=== PATIENT | male | born 1945 | race Caucasian/White ===

== ENCOUNTER 2018-02-14 17:42 | Emergency (ER) | payer MEDICARE, OTHER ==
[2018-02-14 17:55] VITALS: BMI 24.7
[2018-02-14 17:58] VITALS: O2SAT 99
--- NOTE | 2018-02-14 18:59 | C.PDOC ---
History Of Present Illness 72 year old male presents to the ED for evaluation of intermittent discomfort in his inguinal areas (right>left) after heavy lifting. Patient has prior diagnosis of inguinal hernia. Patient was referred for outpatient surgical consult, but has not followed up because he is afraid of surgery. Patient presents to the ED requesting a second opinion. He denies fever, chills, nausea , vomiting. Time Seen by Provider: 02/14/18 18:18 Chief Complaint (Nursing): Abdominal Pain History Per: Patient History/Exam Limitations: no limitations Onset/Duration Of Symptoms: Hrs Current Symptoms Are (Timing): Still Present Quality Of Discomfort: "Pain" Associated Symptoms: denies: Fever, Chills, Nausea, Vomiting Additional History Per: Patient Past Medical History Reviewed: Historical Data, Nursing Documentation, Vital Signs Vital Signs: Last Vital Signs Temp 97.7 F 02/14/18 19:13 Pulse 61 02/14/18 19:13 Resp 18 02/14/18 19:13 BP 110/71 02/14/18 19:13 Pulse Ox 99 02/14/18 21:02 - Medical History PMH: HTN, Hypercholesterolemia Surgical History: No Surg Hx Family History: States: Unknown Family Hx - Social History Hx Alcohol Use: No Hx Substance Use: No - Immunization History Hx Tetanus Toxoid Vaccination: No Hx Influenza Vaccination: No Hx Pneumococcal Vaccination: No Review Of Systems Constitutional: Negative for: Fever, Chills Gastrointestinal: Positive for: Other (inguinal hernia, right>left). Negative for: Nausea, Vomiting Physical Exam - Physical Exam Appears: Non-toxic, No Acute Distress Skin: Normal Color, Warm, Dry Head: Atraumatic, Normacephalic Eye(s): bilateral: Normal Inspection Oral Mucosa: Moist Neck: Supple Chest: Symmetrical, No Deformity, No Tenderness Cardiovascular: Rhythm Regular, No Murmur Respiratory: Normal Breath Sounds, No Rales, No Rhonchi, No Wheezing Gastrointestinal/Abdominal: Soft, No Tenderness, No Guarding, No Rebound Male Genital: No Scrotal Swelling, Other (small, bilateral inguinal hernias right>left. no protruding hernias. scrotum and penis unremarkable ) Extremity: Normal ROM, Capillary Refill (less than 2 seconds ) Neurological/Psych: Oriented x3, Normal Speech, Normal Cognition ED Course And Treatment O2 Sat by Pulse Oximetry: 99 (on RA) Pulse Ox Interpretation: Normal Progress Note: Motrin PO given. Medical Decision Making Medical Decision Making: b/l R>L small inguinal hernias already prior dx pt lost to f/u with Gen Surg ok to f/u as opt no protruding hernia now. reduction/ice/NSAIDS educated. Disposition Doctor Will See Patient In The: Office Counseled Patient/Family Regarding: Studies Performed, Diagnosis - Disposition Referrals: [facility] [Outside] [facility] [Outside] [facility] [Outside] Zay Bess MD [Medical Doctor] - Cornelius Johnson MD [Staff Provider] - Hunter Keita MD [Staff Provider] - Disposition: HOME/ ROUTINE Disposition Time: 18:57 Condition: GOOD Additional Instructions: Llama para hacer carson con el Cirjuano General en la proxima 1-2 semanas. No levanta nada pesada Agueda Ibuprofeno 400-600 mg cada 6 horas cindy necessario. Si duele pone bolsa de hielo encima Porque esta tomando Plavix, tiene que descontinuar el Plavix ANTES del cirjuia electivos Se puede coordinar con Dr. Keita. Instructions: Inguinal and Femoral (Groin) Hernias Forms: [employer] (Sami) Print Language: TURKISH - Clinical Impression Clinical Impression: Inguinal hernia bilateral, non-recurrent - Scribe Statement The provider has reviewed the documentation as recorded by the Scribe (Samina Wheeler) Provider Attestation: All medical record entries made by the Scribe were at my direction and personally dictated by me. I have reviewed the chart and agree that the record accurately reflects my personal performance of the history, physical exam, medical decision making, and the department course for this patient. I have also personally directed, reviewed, and agree with the discharge instructions and disposition.
[2018-02-14 19:14] VITALS: BP 110/71; PULSE 61; RESP 18; TEMP 97.7
== END 2018-02-14 19:18 | disposition home or self-care (01) ==
LOC: C.ER 17:42
DX: K40.20 Bilateral inguinal hernia, without obstruction or gangrene, not specified as recurrent (principal)

== ENCOUNTER 2018-04-18 19:17 | Emergency (ER) | payer MEDICARE, OTHER ==
[2018-04-18 19:17] VITALS: BMI 24.7
[2018-04-18 19:30] VITALS: O2SAT 98
--- NOTE | 2018-04-18 20:10 | C.PDOC ---
History Of Present Illness 72yo male, comes to ER reporting a persistent direct right inguinal hernia. Patient was seen for same by this physician on 02/14 and was extensively instructed on reduction technique, and informed to follow up with a surgeon. Patient states he has done neither, and is here today due to persistent mild discomfort. Otherwise, no fever, chills, abdominal pain, vomiting or diarrhea. Time Seen by Provider: 04/18/18 19:42 Chief Complaint (Nursing): Abdominal Pain History Per: Patient History/Exam Limitations: no limitations Onset/Duration Of Symptoms: Persistent Past Medical History Reviewed: Historical Data, Nursing Documentation, Vital Signs Vital Signs: Last Vital Signs Temp 97.7 F 04/18/18 20:00 Pulse 63 04/18/18 20:00 Resp 16 04/18/18 20:00 BP 124/73 04/18/18 20:00 Pulse Ox 98 04/18/18 21:00 - Medical History PMH: HTN, Hypercholesterolemia Surgical History: No Surg Hx Family History: States: Unknown Family Hx - Social History Hx Alcohol Use: No Hx Substance Use: No - Immunization History Hx Tetanus Toxoid Vaccination: No Hx Influenza Vaccination: No Hx Pneumococcal Vaccination: No Review Of Systems Except As Marked, All Systems Reviewed And Found Negative. Constitutional: Negative for: Fever, Chills Gastrointestinal: Negative for: Nausea, Vomiting, Abdominal Pain Genitourinary: Positive for: Other (direct right inguinal hernia) Physical Exam - Physical Exam Appears: Non-toxic, No Acute Distress Skin: Normal Color Head: Normacephalic Eye(s): bilateral: Normal Inspection Neck: Supple Chest: Symmetrical Cardiovascular: Rhythm Regular Gastrointestinal/Abdominal: Soft, No Tenderness, Hernia (bowel noted in right scrotum) Extremity: Normal ROM Neurological/Psych: Oriented x3 ED Course And Treatment O2 Sat by Pulse Oximetry: 98 (RA) Pulse Ox Interpretation: Normal Medical Decision Making Medical Decision Making: persistent R inguinal hernia, easily reducable pt lost to f/u with Gen Surg- Dr. Romano was last referral- never called AGAIN easily reducable in ED by pt himself AGAIN educated to call Dr. Romano's office for opt f/u and elective surgical repair. Disposition Doctor Will See Patient In The: Office Counseled Patient/Family Regarding: Studies Performed, Diagnosis - Disposition Referrals: [facility] [Outside] [facility] [Outside] [facility] [Outside] [facility] [Outside] Cornelius Johnson MD [Staff Provider] - Disposition: HOME/ ROUTINE Disposition Time: 20:10 Condition: GOOD Additional Instructions: bolsa de hielo encima 1/2 hora por hora tylenol o' Ibuprofeno cindy necessario Ud mismo puede reducir la hernia cindy explicado en la [place] [facility] (Acostado, rodillas dobladas, lorena plano en la cama, y usa balderas mano/dedo) LLAMA A DR CORIE CASTORENA PARA HACER JOSE A PARA CIRJUIA ELECTIVO Instructions: Inguinal and Femoral (Groin) Hernias Forms: [employer] (Mongolian) Print Language: SINHALA - Clinical Impression Clinical Impression: Inguinal hernia - Scribe Statement The provider has reviewed the documentation as recorded by the Scribe Melyssa Odonnell Provider Attestation: All medical record entries made by the Scribe were at my direction and personally dictated by me. I have reviewed the chart and agree that the record accurately reflects my personal performance of the history, physical exam, medical decision making, and the department course for this patient. I have also personally directed, reviewed, and agree with the discharge instructions and disposition.
[2018-04-18 20:19] VITALS: BP 124/73; PULSE 63; RESP 16; TEMP 97.7
== END 2018-04-18 21:00 | disposition home or self-care (01) ==
LOC: C.ER 19:17
DX: K40.90 Unilateral inguinal hernia, without obstruction or gangrene, not specified as recurrent (principal)